=== PATIENT | male | born 1960 | race Caucasian/White ===

== ENCOUNTER 2024-11-08 14:15 | Observation (INO) | payer MEDICARE, OTHER, SELFPAY ==
[2024-11-08] VITALS (8 sets, daily range): BP systolic 161–210; BP diastolic 76–98; PULSE 68–79; RESP 16–23; TEMP 36–36.6; O2SAT 94–98; BMI 37.3; BMI 37.5
--- NOTE | 2024-11-08 14:25 | DI.RAD.S_ITS ---
PROCEDURE: XR CHEST 1V INDICATIONS: chest pain TECHNIQUE: One view of the chest was acquired. COMPARISON: [facility], CR, XR ABDOMEN 1 VIEW, 04/25/2023, 13:53. FINDINGS: Surgical changes and devices: None. Lungs and pleura: Lungs are clear except for focal alveolar radiodensity at the lateral left base adjacent to the diaphragm. No pleural effusions or pneumothorax. Mediastinum: Mediastinal contours appear normal. Heart size is normal. Bones and chest wall: No suspicious bony lesions. Overlying soft tissues appear unremarkable. IMPRESSION: No comparison chest plain film. Alveolar infiltration lateral left lower lobe abutting the diaphragm laterally. This could represent mild pneumonia versus prior scarring or atelectasis. No pleural effusion is associated. Dictated by: Luke Malagon M.D. on 11/08/2024 at 15:02 Approved by: Luke Malagon M.D. on 11/08/2024 at 15:06
--- NOTE | 2024-11-08 14:25 | EKG_ITS ---
[facility] [address] [place] [address] Test Date: 2024-11-08 Pat Name: David Duran Department: [facility] Room: Gender: Male Corporate Treasurer: THELMA : 1960 Requested By: Order Number: [id number] Reading MD: Bob Rico Measurements Intervals [place] Rate: 72 P: 62 FL: 152 QRS: -38 QRSD: 90 T: 48 QT: 386 QTc: 422 Interpretive Statements Normal sinus rhythm Possible Left atrial enlargement Left axis deviation Inferior infarct , age undetermined Electronically Signed On 11-14-2024 9:05:35 PST by Bob Rico
[2024-11-08 15:32] LABS: Add Manual Diff / Slide Review NO; Basophils Absolute Auto 100 /uL (0-100); Basophils Percent Auto 0.7 % (0-2); Eosinophils Absolute Auto 200 /uL (0-450); Eosinophils Percent Auto 2.3 % (2-4); Hematocrit 45.9 % (41-53); Hemoglobin 15.5 g/dL (13.5-17.5); Lymphocytes Absolute Auto 4200 /uL (1100-4500); Lymphocytes Percent Auto 43.2 % (25-40); Mean Corpuscular HGB Conc 33.8 % (30-36); Mean Corpuscular Hemoglobin 28.9 PG (26-34); Mean Corpuscular Volume 85.5 fL (80-100); Monocytes Absolute Auto 700 /uL (0-900); Monocytes Percent Auto 7.5 % (3-14); Neutrophils Absolute Auto 4500 /uL (1500-7000); Neutrophils Percent Auto 46.3 % (50-75); Platelet Count 218 X10^3/uL (150-400); Red Blood Cell Count 5.37 X10^6/uL (4.5-5.9); Red Cell Distribution Width 14.4 % (11.6-14.8); White Blood Cell Count 9.7 X10^3/uL (4.5-11.0)
[2024-11-08 15:33] LABS: Prothrombin Time 11.6 SECONDS (9.4-12.5)
[2024-11-08 15:36] LABS: PTT Partial Thromboplastin Tim 32 SECONDS (25.1-36.5)
[2024-11-08 15:39] LABS: Alanine Aminotransferase 98 IU/L (<50); Albumin 4.1 g/dL (3.5-5.0); Albumin Globulin Ratio 1.5 (1.0-2.8); Alkaline Phosphatase 89 U/L (38-126); Aspartate Aminotransferase 47 IU/L (17-59); BUN Creatinine Ratio 18.7 (6-22); Bilirubin Total 0.7 mg/dL (0.2-1.3); Blood Urea Nitrogen 14 mg/dL (9-20); Calcium 9.2 mg/dL (8.4-10.2); Carbon Dioxide 25 mmol/L (22-32); Chloride 106 mmol/L (98-107); Creatine Kinase 171 U/L (55-170); Estimated Glomerular Filt Rate > 60 mL/min (>60); Globulin 2.8 g/dL (1.7-4.1); Glucose 111 mg/dL (80-110); HEMOLYSIS 17 (0-50); Lipase 93 U/L (23-300); Magnesium 1.7 mg/dL (1.6-2.3); Potassium 3.6 mmol/L (3.4-5.1); Sodium 135 mmol/L (137-145); Total Protein 6.9 g/dL (6.3-8.2)
[2024-11-08 15:47] LABS: Bacteria Urine Occasional (0-1); Culture Indicated Urine Cult Not Indicated; RBC Urine 1-5/HPF (0-5/HPF); Squamous Epithelial Cell Urine 0-1 /HPF (0-5/HPF); Urine Volume 10mL (spun); WBC Urine 0-1/HPF (0-5/HPF)
[2024-11-08 15:50] LABS: NT-proBNP (BNP-Adult 18+) 40 pg/mL (<125); Troponin I < 0.012 ng/mL (0.01-0.034)
--- NOTE | 2024-11-08 15:56 | ED_ITS ---
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 He notes that he has had occasional palpitations for much of his life over the past number of months it is become increasingly more impressive both in terms of intensity, frequency and symptoms. He has had a number of near syncopal episodes. He has a sense that is coming on and it will resolve. He comes in today for further evaluation. He did have a sleep study at home about a week ago and received a phone call from his physician 2 days ago and was told that his sleep apnea was controlled but he had ?some heart issues?. No recent fever, cough, chills, nausea, vomiting. No prior coronary events of which he is where he may have had 1 or 2 TIAs. Related Data Home Medications Medication Instructions Recorded Confirmed OMEGA-3 FATTY ACIDS (FISH OIL) 500 mg PO QDAY ##0 07/13/16 lisinopril 20 mg tablet (Prinivil) 20 mg PO QDAY ##0 07/13/16 venlafaxine 75 mg tablet 75 mg PO QDAY ##0 07/13/16 chlorthalidone 25 mg tablet 25 mg PO DAILY 11/08/24 dulaglutide 0.75 mg/0.5 mL mg SUBCUT 11/08/24 subcutaneous pen injector (Trulicity) fluoxetine 20 mg capsule 60 mg PO QAM 11/08/24 losartan 100 mg tablet 100 mg PO DAILY 11/08/24 metformin 1,000 mg tablet 1,000 mg PO BID 11/08/24 Allergies Allergy/AdvReac Type Severity Reaction Status Date / Time No Known Drug Allergies Allergy Verified 11/08/24 14:24 Review of Systems Review of Systems Narrative: Pertinent positive and negative findings as per HPI Patient History Medical History (Updated 11/08/24 @ 16:18 by Francia Thomas MD) Ventricular tachycardia Sleep apnea Hyperlipidemia Hypertension Type 2 diabetes mellitus Surgical History History of carpal tunnel repair Family History Grandfather Cancer Grandmother Heart disease Social History Smoking Status: Former smoker Smoking Status: Former smoker tobacco type: cigarettes and cigars Exam Initial Vital Signs Initial Vital Signs: Vital Signs Temperature 97.9 F 11/08/24 14:19 Pulse Rate 70 11/08/24 14:19 Respiratory Rate 16 11/08/24 14:19 Blood Pressure 192/93 H 11/08/24 14:19 Pulse Oximetry 96 11/08/24 14:19 Oxygen Delivery Method Room Air 11/08/24 14:19 General: Healthy appearing, in no acute distress. Able to give a complete and coherent history. Well-nourished well-developed HEENT: Moist mucous membranes, normal sclera with reactive pupils, Neck: No JVD, supple Respiratory: Lungs are clear to auscultation, no wheezing no rales no rhonchi. Full and symmetrical air movement Cardiac: Regular rate and rhythm no murmurs no bruits Abdomen: Soft, nontender, good bowel tones, no flank pain Skin: Warm and dry, no rashes Neurologic: Grossly neurologically intact with no obvious asymmetries or abnormalities Extremities: No trauma, well perfused Psych: Cooperative, appropriate insight and affect Course Orders Ordered: ED Orders 11/08/24 14:25 XR chest 1V Stat EKG-12 Lead Stat 11/08/24 15:12 Complete Blood Count AUTO DIFF Stat Comprehensive Metabolic Panel Stat Lipase Stat Magnesium Stat NT-proBNP (BNP-Adult 18+) Stat PTT Partial Thromboplastin Santosh Stat Prothrombin Time INR Stat Troponin & CK Cardiac Panel Stat 11/08/24 15:23 Urine Microscopic Stat Discontinued Medications Aspirin (Aspirin 81 Mg Chew Tab) 324 mg PO NOW ONE Stop: 11/08/24 14:26 Vital Signs Vital signs: Vital Signs - 8 hr 11/08/24 14:19 Temperature 97.9 F Pulse Rate 70 Respiratory Rate 16 Blood Pressure 192/93 H Pulse Oximetry 96 Oxygen Delivery Method Room Air MDM - Arrhythmia/Palpitations Lab Data 11/08/24 15:12 11/08/24 15:12 Labs: Lab Results 12/27/24 12/27/24 Range/Units 15:12 15:23 WBC 9.7 (4.5-11.0) X10^3/uL RBC 5.37 (4.5-5.9) X10^6/uL Hgb 15.5 (13.5-17.5) g/dL Hct 45.9 (41-53) % MCV 85.5 (80-100) fL MCH 28.9 (26-34) PG MCHC 33.8 (30-36) % RDW 14.4 (11.6-14.8) % Plt Count 218 (150-400) X10^3/uL Neut % (Auto) 46.3 L (50-75) % Lymph % (Auto) 43.2 H (25-40) % [place] % (Auto) 7.5 (3-14) % Eos % (Auto) 2.3 (2-4) % Baso % (Auto) 0.7 (0-2) % Neut # (Auto) 4500 (4494-7577) /uL Lymph # (Auto) 4200 (7630-3937) /uL [place] # (Auto) 700 (0-900) /uL Eos # (Auto) 200 (0-450) /uL Baso # (Auto) 100 (0-100) /uL PT 11.6 (9.4-12.5) SECONDS INR 1.0 (0.9-1.3) APTT 32 (25.1-36.5) SECONDS Sodium 135 L (137-145) mmol/L Potassium 3.6 (3.4-5.1) mmol/L Chloride 106 (98-107) mmol/L Carbon Dioxide 25 (22-32) mmol/L BUN 14 (9-20) mg/dL Creatinine 0.75 (0.66-1.25) mg/dL Estimated GFR > 60 (>60) mL/min BUN/Creatinine Ratio 18.7 (6-22) Glucose 111 H (80-110) mg/dL Calcium 9.2 (8.4-10.2) mg/dL Magnesium 1.7 (1.6-2.3) mg/dL Total Bilirubin 0.7 (0.2-1.3) mg/dL AST 47 (17-59) IU/L ALT 98 H (<50) IU/L Alkaline Phosphatase 89 (38-126) U/L Total Creatine Kinase 171 H (55-170) U/L Troponin I < 0.012 (0.01-0.034) ng/mL NT-Pro-B Natriuret Pep 40 (<125) pg/mL Total Protein 6.9 (6.3-8.2) g/dL Albumin 4.1 (3.5-5.0) g/dL Globulin 2.8 (1.7-4.1) g/dL Albumin/Globulin Ratio 1.5 (1.0-2.8) Lipase 93 (23-300) U/L Urine RBC 1-5/hpf (0-5/HPF) Urine WBC 0-1/hpf (0-5/HPF) Ur Squamous Epith Cells 0-1 /hpf (0-5/HPF) Urine Bacteria Occasional (0-1) (None) Ur Culture Indicated? Cult not indicated Vol Urine Centrifuged 10ml (spun) Urine Dip Bedside Urine Glucose Negative Bedside Urine Bilirubin - Negative Bedside Urine Ketone - Negative Urine Specific [place] 1.005 Bedside Urine Occult Blood ++ Bedside Urine pH 7.0 Bedside Urine Protein - Negative Bedside Urine Urobilinogen - Negative Bedside Urine Nitrite - Negative Bedside Urine Leukocytes - Negative Esterase MDM Narrative Medical decision making narrative: CC: Palpitations associated with near-syncope increasing in frequency and intensity Complicating co-morbidities: Hypertension, sleep apnea, diabetes, hyperlipidemia Data collected from: patient Medical records reviewed: No records are available for review at this time Differential considered: Simple arrhythmia, pathologic arrhythmia, TIA Exam documented above, pertinent findings include: Benign exam. On telemetry while we are talking he is having occasional PVCs Lab Test results independently reviewed as above. Pertinent findings: CBC is reassuring Chemistries show no significant abnormalities with normal renal function. Calcium and magnesium levels are appropriate AST is 47 ALT minimally elevated at 98 normal alkaline phosphatase. Troponin is undetectable BNP is low Independently reviewed EKG: Sinus rhythm at a rate of 72 no acute ischemic changes Patient had an episode on telemetry with 10 beat run of ventricular tachycardia with spontaneous return to sinus rhythm. He states that this is the palpitation that he has been having and he did notice this run with associated slight dizziness Imaging studies independently reviewed: Chest x-ray does not show significant cardiomegaly, no obvious infiltrates Consultations: Discussed case with Dr. Guillaume, cardiology. Recommendation was to replace potassium to get potassium levels above 4 currently at 3.6. Replace magnesium to get levels above 2 currently at 1.6. Begin metoprolol 25 mg immediate release q.6 hours and increased to 50 q.6 hours if heart rate and blood pressure tolerate this. Recommended ischemic evaluation and further evaluation of LV function. If he is having worsening episodes of V-tach. Discontinuing the chlorthalidone is also recommended Treatment: Oral potassium, IV magnesium, oral metoprolol Discussion: 63-year-old gentleman with increasing palpitations over the last number of months both in intensity and frequency. He had a 10 beat run of V- tach caught on our telemetry monitors which he states is policy services representative of his palpitations. Chemistries are unremarkable, no electrolyte abnormalities, troponins are not elevated, EKG does not suggest acute ischemic abnormalities. Care is reviewed with the hospitalist and patient will be admitted for further evaluation. Discharge Plan Departure Patient Disposition: Admitted as Observation Clinical Impression: Ventricular tachycardia, History of palpitations, Near syncope Prescriptions: No Action lisinopril [Prinivil] 20 MG tablet 20 mg PO QDAY Qty: 0 OMEGA-3 FATTY ACIDS (FISH OIL) 500 mg PO QDAY Qty: 0 venlafaxine 75 MG tablet 75 mg PO QDAY Qty: 0 chlorthalidone 25 mg tablet 25 mg PO DAILY fluoxetine 20 mg capsule 60 mg PO QAM losartan 100 mg tablet 100 mg PO DAILY metformin 1,000 mg tablet 1,000 mg PO BID Trulicity 0.75 mg/0.5 mL pen injector SUBCUT Patient Comments: [NO ORIGINAL SIG] Referrals: Miscellaneous,MD Joleen [Primary Care Provider] - Admit Date/Time: 11/08/24 16:40 Admit Provider: Zander Figueroa V
--- NOTE | 2024-11-08 16:38 | P.HP_ITS ---
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 He has had several near syncopal episodes in the past. He states that after a home sleep study week ago he was told that he had ?some heart issues?, though his sleep apnea is well controlled. No recent illnesses, chest pain, shortness for breath, lateralizing weakness, paresthesias, though states that he may have had TIAs in the past. In the emergency department he had a wide complex 10 beat run of tachycardia that was initially described as ventricular tachycardia, though on review shows [id number] variability consistent with possible atrial fibrillation with aberrancy. [facility] Medical History Hyperlipidemia Hypertension Sleep apnea Type 2 diabetes mellitus Ventricular tachycardia Surgical History History of carpal tunnel repair Family History Grandfather Cancer Grandmother Heart disease Social History Smoking Status: Former smoker Meds Home Medications and Allergies Home Medications Medication Instructions Recorded Confirmed Type OMEGA-3 FATTY ACIDS (FISH OIL) 500 mg PO QDAY ##0 07/13/16 History lisinopril 20 mg tablet (Prinivil) 20 mg PO QDAY ##0 07/13/16 History venlafaxine 75 mg tablet 75 mg PO QDAY ##0 07/13/16 History chlorthalidone 25 mg tablet 25 mg PO DAILY 11/08/24 History dulaglutide 0.75 mg/0.5 mL mg SUBCUT 11/08/24 History subcutaneous pen injector (Trulicity) fluoxetine 20 mg capsule 60 mg PO QAM 11/08/24 History losartan 100 mg tablet 100 mg PO DAILY 11/08/24 History metformin 1,000 mg tablet 1,000 mg PO BID 11/08/24 History Allergies Allergy/AdvReac Type Severity Reaction Status Date / Time No Known Drug Allergies Allergy Verified 11/08/24 14:24 Review of Systems Review of Systems ROS: Yes All systems reviewed with the patient and are negative except as otherwise documented Exam Vital Signs (past 8 hours): - 11/08/24 14:19 Temperature 97.9 F Pulse Rate 70 Respiratory Rate 16 Blood Pressure 192/93 H Pulse Oximetry 96 Oxygen Delivery Method Room Air Oxygen Delivery Method Room Air Narrative Exam Narrative: GENERAL: This is a well-nourished, well-developed patient, in no apparent distress. HEAD: Atraumatic. Normocephalic. No temporal or scalp tenderness. EYES: Pupils equal round and reactive. Extraocular motions intact. No scleral icterus. No injection or drainage. ENT: Mucous membranes pink and moist. NECK: Trachea midline. No JVD, bruits or lymphadenopathy. Supple, nontender, no meningeal signs. CARDIOVASCULAR: Regular rate and rhythm with occasional ectopy, without murmurs, gallops, or rubs. RESPIRATORY: Clear to auscultation. GASTROINTESTINAL: Abdomen soft, non-tender, nondistended. EXTREMITIES: No clubbing, cyanosis, or edema. BACK: Nontender without deformity or crepitance. No flank tenderness. NEUROLOGIC: Alert, oriented, speech fluent, full upper and lower motor strength, no focal deficits evident. DERMATOLOGIC: No rashes or skin lesions. Objective ECG Impression: Normal sinus rhythm at 72bpm Possible Left atrial enlargement Left axis deviation Inferior infarct , age undetermined Imaging Chest x-ray: Radiologist's impression: No comparison chest plain film. Alveolar infiltration lateral left lower lobe abutting the diaphragm laterally. This could represent mild pneumonia versus prior scarring or atelectasis. No pleural effusion is associated. Labs 11/08/24 15:12 11/08/24 15:12 Labs: Laboratory Results - last 24 hr 11/08/24 11/08/24 15:12 15:23 WBC 9.7 RBC 5.37 Hgb 15.5 Hct 45.9 MCV 85.5 MCH 28.9 MCHC 33.8 RDW 14.4 Plt Count 218 Neut % (Auto) 46.3 L Lymph % (Auto) 43.2 H [place] % (Auto) 7.5 Eos % (Auto) 2.3 Baso % (Auto) 0.7 Neut # (Auto) 4500 Lymph # (Auto) 4200 [place] # (Auto) 700 Eos # (Auto) 200 Baso # (Auto) 100 PT 11.6 INR 1.0 APTT 32 Sodium 135 L Potassium 3.6 Chloride 106 Carbon Dioxide 25 BUN 14 Creatinine 0.75 Estimated GFR > 60 BUN/Creatinine Ratio 18.7 Glucose 111 H Calcium 9.2 Magnesium 1.7 Total Bilirubin 0.7 AST 47 ALT 98 H Alkaline Phosphatase 89 Total Creatine Kinase 171 H Troponin I < 0.012 NT-Pro-B Natriuret Pep 40 Total Protein 6.9 Albumin 4.1 Globulin 2.8 Albumin/Globulin Ratio 1.5 Lipase 93 Urine RBC 1-5/hpf Urine WBC 0-1/hpf Ur Squamous Epith Cells 0-1 /hpf Urine Bacteria Occasional (0-1) Ur Culture Indicated? Cult not indicated Vol Urine Centrifuged 10ml (spun) Assessment & Plan Assessment & Plan narrative: 1. Arrhythmia, possible atrial fibrillation with aberrancy. Monitor on telemetry overnight. Obtain echocardiogram. 2. Hypokalemia. Replete and monitor. 3. Hypomagnesemia. Replete and monitor. 4. Diabetes mellitus, type 2. Continue routine medication. 5. Hypertension. Continue routine medication. 6. Hyperlipidemia. 7. Sleep apnea. Continue routine CPAP. 8. DVT prophylaxis: Low risk. 9. Code status: Full code. Plan: -telemetry/observation -replete potassium and magnesium -echocardiogram Admit to observation. Possible discharge home tomorrow if stable and doing well. Quality MIPS - Admit I confirm the patient?s Advance Care Plan is present, Code status is documented, Surrogate decision maker is in patient?s record [If Yes, STOP here]: Yes [facility] - Meds 'Current medications' to include all prescriptions, [id number] products, herbals, cannabis/cannabidiol products, and vitamin/mineral/dietary (nutritional) supplements. I have utilized all available resources to obtain, update, or review the patient?s current medications. [If Yes, STOP here]: Yes [facility] Charge Codes Initial inpatient/observation care: [id number]
[2024-11-08] MEDS: METOPROLOL IR 25 MG TABLET PO ×2 (16:51→18:25)
[2024-11-08] MEDS: ASPIRIN 81 MG CHEW TAB 324 MG PO (16:51)
[2024-11-08] MEDS: MAGNESIUM SULFATE 2 GM/50 ML PIGGYBACK IV (16:51)
[2024-11-08] MEDS: POTASSIUM CHLORIDE 20 MEQ TAB 40 MEQ PO (16:51)
--- NOTE | 2024-11-08 18:06 | DI.ECHO.S_ITS ---
[facility] : : [address] : : [place] : : [id number] : : Phone: [phone] Echocardiogram Report + + :Name: LIA PEREZ Study Date: 11/09/2024 Height: 72 in : :Hospital ReadingLocation: Weight: 275 lb : : Gender: Male BSA: 2.4 m2 : :: 1960 Age: 63 yrs BP: 139/92 mmHg: :Reason For Study: ATRIAL FIBRILLATION : :Ordering Physician: IVAN, : :YUSUF Performed By: Meliza Baugh : :Referring: YUSUF LOVE : + + Interpretation Summary The left ventricle is normal in size. The left ventricular ejection fraction is normal. The ejection fraction is estimated to be 60-65%. No significant diastolic dysfunction. The right ventricle is normal in size and function. No significant valvular pathology seen. Procedure: A two-dimensional transthoracic echocardiogram with color flow and Doppler was performed. The study quality was technically adequate. There is no prior echocardiogram noted for this patient. The patient was in sinus rhythm with heart rates between 66-70 bpm during the exam. Left Ventricle: The left ventricle is normal in size. Proximal septal thickening is noted. There is no echo evidence for significant left ventricular outflow tract obstruction. There is no thrombus. The ejection fraction is estimated to be 60-65%. The left ventricular ejection fraction is normal. There are no focal wall motion abnormalities. No significant diastolic dysfunction. Right Ventricle: The right ventricle is normal in size and function. Atria: The left atrial size is normal. Right atrial size is normal. There is no Doppler evidence for an interatrial shunt. Mitral Valve: The mitral valve leaflets appear borderline thickened, but open well. The mitral valve leaflets appear to open well. There is no mitral valve stenosis. There is mild mitral regurgitation. Aortic Valve: The aortic valve is trileaflet. The aortic valve opens well. There is no aortic valve stenosis. No aortic regurgitation is present. Tricuspid Valve: The tricuspid valve leaflets are thin and pliable. Pulmonary artery pressures cannot be estimated because of the lack of a measurable TR jet velocity. There is trace tricuspid regurgitation. Pulmonic Valve: The pulmonic valve is not well seen, but is grossly normal. There is no pulmonic valvular regurgitation. Great Vessels: The aortic root is normal size. The ascending aorta could not be visualized. The inferior vena cava was not well visualized. Pericardium/ Pleura There is no pericardial effusion. There is no pleural effusion. MMode/2D Measurements & Calculations LVIDd: 5.9 cm LVOT diam: 2.3 cm LVIDs: 3.9 cm Ao root diam: 3.4 cm FS: 33.8 % Ao Arch Diam (Prox Trans): 3.5 cm EPSS: 0.82 cm IVSd: 0.88 cm LVPWd: 1.2 cm LV long. diameter/BSA (cm/m^2): 2.4 LV sys. diameter/BSA (cm/m^2): 1.6 LA A2 area: 16.8 cm2 RA long axis: 4.7 cm LA A4 area: 13.5 cm2 RA area: 13.2 cm2 LA length (vol): 4.3 cm RA vol: 31.3 ml LA vol: 44.8 ml RA : 12.8 ml/m2 LA vol index: 18.4 ml/m2 RVD1 (basal): 3.7 cm TAPSE: 2.1 cm Doppler Measurements & Calculations Ao V2 max: 115.9 cm/sec LVOT Max Bib: 92.0 cm/sec Ao V2 mean: 85.1 cm/sec LV V1 max P.4 mmHg Ao max P.4 mmHg LV V1 VTI: 21.6 cm Ao mean P.2 mmHg CHIVO(I,D): 3.4 cm2 Ao V2 VTI: 25.3 cm CHIVO(V,D): 3.2 cm2 sev ratio: 0.86 CHIVO indexed to BSA (cm^2/m^2): 1.4 MV E max bib: 80.8 cm/sec PA V2 max: 92.4 cm/sec MV A max bib: 70.2 cm/sec PA V2 mean: 67.5 cm/sec MV E/A: 1.1 PA mean P.0 mmHg Med Peak E' Bib: 8.9 cm/sec PA pr(Accel): 20.8 mmHg E/E' med: 9.1 Lat Peak E' Bib: 9.6 cm/sec E/E' lat: 8.4 E/e' average: 8.8 MV dec time: 0.21 sec MVA(VTI): 3.2 cm2 MV V2 mean: 58.7 cm/sec SV(LVOT): 86.8 ml MV mean P.5 mmHg MV V2 VTI: 26.9 cm Reading Physician:12:24 PM
[2024-11-08] MEDS: METFORMIN HCL 500 MG TABLET 1000 MG PO (20:58)
[2024-11-09] VITALS: BP 147/76; PULSE 63; RESP 18; TEMP 37; O2SAT 97
[2024-11-09] MEDS: METOPROLOL IR 25 MG TABLET PO ×2 (00:08→06:03)
[2024-11-09] MEDS: SODIUM CHLORIDE 0.9% FLUSH 10 ML IV ×2 (00:49→09:27)
[2024-11-09 04:00] VITALS: BP 141/71; PULSE 67; RESP 16; TEMP 37.1; O2SAT 95
[2024-11-09 05:19] LABS: Add Manual Diff / Slide Review NO; Basophils Absolute Auto 100 /uL (0-100); Basophils Percent Auto 0.6 % (0-2); Eosinophils Absolute Auto 300 /uL (0-450); Eosinophils Percent Auto 2.6 % (2-4); Hemoglobin 15.5 g/dL (13.5-17.5); Lymphocytes Absolute Auto 6100 /uL (1100-4500); Lymphocytes Percent Auto 47.5 % (25-40); Mean Corpuscular HGB Conc 32.9 % (30-36); Mean Corpuscular Hemoglobin 28.2 PG (26-34); Mean Corpuscular Volume 85.5 fL (80-100); Monocytes Absolute Auto 1200 /uL (0-900); Monocytes Percent Auto 9.4 % (3-14); Neutrophils Absolute Auto 5200 /uL (1500-7000); Neutrophils Percent Auto 39.9 % (50-75); Platelet Count 225 X10^3/uL (150-400); Red Cell Distribution Width 14.3 % (11.6-14.8); White Blood Cell Count 12.9 X10^3/uL (4.5-11.0)
[2024-11-09 05:29] LABS: BUN Creatinine Ratio 24.3 (6-22); Blood Urea Nitrogen 17 mg/dL (9-20); Calcium 9.1 mg/dL (8.4-10.2); Carbon Dioxide 23 mmol/L (22-32); Chloride 106 mmol/L (98-107); Estimated Glomerular Filt Rate > 60 mL/min (>60); Glucose 88 mg/dL (80-110); HEMOLYSIS 17 (0-50); Potassium 3.9 mmol/L (3.4-5.1); Sodium 135 mmol/L (137-145)
[2024-11-09 08:00] VITALS: BP 139/92; PULSE 61; RESP 12; TEMP 36.6; O2SAT 93
[2024-11-09] MEDS: FLUoxetine 20 MG CAPSULE 60 MG PO (09:26)
[2024-11-09] MEDS: METFORMIN HCL 500 MG TABLET 1000 MG PO (09:26)
--- NOTE | 2024-11-09 11:20 | P.DS_ITS ---
History of Present Illness History of Present Illness Date Patient Seen: 11/09/24 Time Patient Seen: 08:35 Date of Onset of Symptoms: 11/08/24 Chief complaint: irregular heart beat Narrative: 63-year-old man under the primary care of the 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 He has had several near syncopal episodes in the past. He states that after a home sleep study week ago he was told that he had ?some heart issues?, though his sleep apnea is well controlled. No recent illnesses, chest pain, shortness for breath, lateralizing weakness, paresthesias, though states that he may have had TIAs in the past. In the emergency department he had a wide complex 10 beat run of tachycardia that was initially described as ventricular tachycardia, though on review shows [id number] variability consistent with possible atrial fibrillation with aberrancy. Discharge Providers Provider Date of admission: 11/08/24 16:40 Discharge Date: 11/09/24 Primary care physician: Doctor Brady MD Discharge provider: Zander Figueroa MD Summary Hospital Course Discharge Diagnosis: 1. Wide complex irregularly irregular tachycardia, consistent with atrial fibrillation with aberrancy. 2. Frequent premature ventricular contractions. 3. Hypokalemia 4. Hypomagnesemia. 5. Diabetes mellitus, type 2. 6. Hypertension. 7. Hyperlipidemia. 8. Sleep apnea. Hospital Course: The patient was admitted and monitored overnight on telemetry. He would demonstrated sinus rhythm and sinus bradycardia with occasional PVCs. He had no further wide complex rhythms or evidence of atrial fibrillation. Electrolytes were repleted. He is feeling well without symptoms. He is recommended to obtain outpatient heart monitoring, e.g., ZIO patch, testing to further evaluate for possible atrial fibrillation. Echocardiogram was obtained and pending at the time of discharge. No other issues arose. The patient acknowledged understanding, agreement and appreciation of this plan of care, and agreed to call back with any questions or concerns. Status at Discharge Cognitive/behavioral status at discharge: oriented Functional status at discharge: independent ambulation Overall status at discharge: patient is back to baseline Time Spent with Patient Time spent: Less than 30 minutes Exam Vital Signs (past 8 hours): - 11/09/24 04:00 11/09/24 08:00 Temperature 98.8 F 97.8 F Pulse Rate 67 61 Respiratory Rate 16 12 Blood Pressure 141/71 H 139/92 H Pulse Oximetry 95 93 Oxygen Flow Rate 0 Oxygen Delivery Method Room Air Oxygen Flow Rate 0 Narrative Exam Narrative: GENERAL: This is a well-nourished, well-developed patient, in no apparent distress. EYES: Pupils equal round and reactive. Extraocular motions intact. No scleral icterus. No injection or drainage. ENT: Mucous membranes pink and moist. NECK: Trachea midline. No JVD, bruits or lymphadenopathy. Supple, nontender, no meningeal signs. CARDIOVASCULAR: Regular rate and rhythm with occasional ectopy, without murmurs, gallops, or rubs. RESPIRATORY: Clear to auscultation. GASTROINTESTINAL: Abdomen soft, non-tender, nondistended. EXTREMITIES: No clubbing, cyanosis, or edema. NEUROLOGIC: Alert, oriented, speech fluent, full upper and lower motor strength, no focal deficits evident. DERMATOLOGIC: No rashes or skin lesions. Objective Labs 11/09/24 05:08 11/09/24 05:08 Labs: Laboratory Results - last 24 hr 11/08/24 11/08/24 11/09/24 15:12 15:23 05:08 WBC 9.7 12.9 H RBC 5.37 5.50 Hgb 15.5 15.5 Hct 45.9 47.0 MCV 85.5 85.5 MCH 28.9 28.2 MCHC 33.8 32.9 RDW 14.4 14.3 Plt Count 218 225 Neut % (Auto) 46.3 L 39.9 L Lymph % (Auto) 43.2 H 47.5 H [place] % (Auto) 7.5 9.4 Eos % (Auto) 2.3 2.6 Baso % (Auto) 0.7 0.6 Neut # (Auto) 4500 5200 Lymph # (Auto) 4200 6100 H [place] # (Auto) 700 1200 H Eos # (Auto) 200 300 Baso # (Auto) 100 100 PT 11.6 INR 1.0 APTT 32 Sodium 135 L 135 L Potassium 3.6 3.9 Chloride 106 106 Carbon Dioxide 25 23 BUN 14 17 Creatinine 0.75 0.70 Estimated GFR > 60 > 60 BUN/Creatinine Ratio 18.7 24.3 H Glucose 111 H 88 Calcium 9.2 9.1 Magnesium 1.7 Total Bilirubin 0.7 AST 47 ALT 98 H Alkaline Phosphatase 89 Total Creatine Kinase 171 H Troponin I < 0.012 NT-Pro-B Natriuret Pep 40 Total Protein 6.9 Albumin 4.1 Globulin 2.8 Albumin/Globulin Ratio 1.5 Lipase 93 Urine RBC 1-5/hpf Urine WBC 0-1/hpf Ur Squamous Epith Cells 0-1 /hpf Urine Bacteria Occasional (0-1) Ur Culture Indicated? Cult not indicated Vol Urine Centrifuged 10ml (spun) [facility] Medical History Hyperlipidemia Hypertension Sleep apnea Type 2 diabetes mellitus Ventricular tachycardia Surgical History History of carpal tunnel repair Family History Grandfather Cancer Grandmother Heart disease Social History household members: spouse Smoking Status: Former smoker Discharge Plan Discharge Plan Patient Disposition: Home Provider Discharge Comment: Followup with PCP 1 week Discharge orders & Medications Prescriptions: New potassium chloride 10 mEq capsule, extended release 10 meq PO DAILY Qty: 30 0RF Continued lisinopril [Prinivil] 20 MG tablet 20 mg PO QDAY Qty: 0 OMEGA-3 FATTY ACIDS (FISH OIL) 500 mg PO QDAY Qty: 0 chlorthalidone 25 mg tablet 25 mg PO DAILY fluoxetine 20 mg capsule 60 mg PO QAM losartan 100 mg tablet 100 mg PO DAILY metformin 1,000 mg tablet 1,000 mg PO BID Trulicity 0.75 mg/0.5 mL pen injector 0.75 mg SUBCUT WEEKLY Patient Comments: [NO ORIGINAL SIG] zinc 100 mg Tablet 100 mg PO DAILY Follow up/Referrals: Doctor Abreu MD [Primary Care Provider] - Visit Report/Discharge Packet Stand Alone Forms: Congestive Heart Failure, Patient Portal/API, Stroke Signs & Symptoms Discharge Data Primary Care Provider: Doctor Brady Attending Provider: Zander Figueroa V Admubaldo Date/Time: 11/08/24 16:40 Quality MIPS - Admit I confirm the patient?s Advance Care Plan is present, Code status is documented, Surrogate decision maker is in patient?s record [If Yes, STOP here]: Yes MIPS - Meds 'Current medications' to include all prescriptions, [id number] products, herbals, cannabis/cannabidiol products, and vitamin/mineral/dietary (nutritional) supplements. I have utilized all available resources to obtain, update, or review the patient?s current medications. [If Yes, STOP here]: Yes MIPS - DC The patient has a history of heart transplant or Left Ventricular Assist Device (LVAD). If yes, STOP here.: No The patient has current or prior documentation of left ventricular ejection fraction (LVEF) less than or equal to 40%, or moderate or severely depressed left ventricular systolic function.: No A. The patient was prescribed or already taking an Angiotensin-Converting Enzyme (ANIRUDH) Inhibitor, or Angiotensin Receptor Carrie (ARB).: Yes B. The patient was prescribed or already taking a beta-carrie. [If Yes to Both A & B, STOP here]: No Patient not prescribed/taking ANIRUDH or ARB, no reason given.: No Patient not prescribed/taking beta-carrie, no reason given.: No PROFEE Charge Codes Discharge inpatient/observation: [id number]
--- NOTE | 2024-11-09 12:18 | CM.DANOTE ---
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 PCP [facility] P[employer] Medicare and [employer] reviewed EMR. Pt lives in [place] with spouse, Anne Marie. Per provider in morning rounds, anticipate dc today with OP PCP f/u recommended. [employer] met with pt and spouse in room. Pt pleasant and chatty and wonderful. pt has cane he uses to mobilize. indep at home. denies any CM needs at this time. P: home with spouse support today. OP f/u recommended. no CM needs at this time. CM team will continue to follow as needed PRICILA Campoverde Discharge Planning/Care Management CM Discharge Assessment Start: 11/09/24 09:23 Freq: Status: Active Protocol: Document 11/09/24 12:16 SL (Rec: 11/09/24 12:17 [id number]) Discharge Planning Assessment Assigned [employer] PRICILA Farley DPOA/Assigned Designee Name hiren Angel Contact Information [phone] Advance Directives? No History Provided By Patient Prior Living Arrangements House Household Members spouse Type of transporation used prior to Drives own vehicle admit Independent with ADL's Yes Is patient alert and oriented? Yes DME Already Rented / Owned Cane Barriers to Discharge No Discharge Plan Home Transportation Arrangement spouse in POV Referrals Initiated None needed Review Status In Process Please Provide Date Initial DC 11/09/24 Assessment Was Performed Next Review Type Continued Stay Review
== END 2024-11-09 12:24 | disposition home or self-care (01) ==
LOC: ED 16:18 → AC 16:40
PROVIDERS: Admitting Provider Internal Medicine; Emergency Provider Emergency Medicine; Referring Provider Emergency Medicine; Visit Provider Internal Medicine
DX: I49.3 Ventricular premature depolarization (principal); I10 Essential (primary) hypertension; G47.30 Sleep apnea, unspecified; E11.9 Type 2 diabetes mellitus without complications; E87.6 Hypokalemia; E83.42 Hypomagnesemia; Z79.84 Long term (current) use of oral hypoglycemic drugs
CPT/HCPCS: 36415; 71045; 80048; 80053; 81003; 81015; 82550; 82962; 83690; 83735; 83880; 84484; 85025; 85610; 85730; 93005; 93306; 96365; 99284; 99285; G0378; J3475

== ENCOUNTER 2025-10-04 00:08 | Emergency (ER) | payer MEDICARE, OTHER, SELFPAY ==
[2024-11-08 18:26] VITALS: BMI 37.5
[2025-10-04 00:24] VITALS: BP 137/84; PULSE 92; RESP 16; TEMP 37.2; O2SAT 99; BMI 29.1
--- NOTE | 2025-10-04 01:15 | ED.MALEGU ---
HPI - Male Genitourinary General Chief complaint: Urogenital-Male Stated complaint: Pain in groin, gradual decrease mobility RT Leg Time Seen by Provider: 10/04/25 01:15 Source: patient Mode of arrival: Wheelchair History of Present Illness HPI Narrative: Patient is a 64-year-old male past medical history of diabetes, comes into the ED from home for evaluation of bilateral thigh/groin pain states it has been slowly getting worse over the past few days, states that 3 days ago he did lift something heavy, states that he felt a little ?strain but has been fine until earlier today when he had sudden worsening onset of pain to his bilateral groin, states that he is unable to stand bear weight secondary to this pain but denies any numbness weakness tingling to the lower extremities. Denies any other symptoms such as headache visual disturbance chest pain shortness breath fever chills nausea vomiting abdominal pain or any other GI/ symptoms time. Related Data Home Medications ?Medication ?Instructions ?Recorded ?Confirmed OMEGA-3 FATTY ACIDS (FISH OIL) 500 mg PO QDAY ##0 07/13/16 11/08/24 lisinopril 20 mg tablet (Prinivil) 20 mg PO QDAY ##0 07/13/16 11/08/24 chlorthalidone 25 mg tablet 25 mg PO DAILY 11/08/24 11/08/24 dulaglutide 0.75 mg/0.5 mL 0.75 mg SUBCUT WEEKLY 11/08/24 11/08/24 subcutaneous pen injector (Trulicity) fluoxetine 20 mg capsule 60 mg PO QAM 11/08/24 11/08/24 losartan 100 mg tablet 100 mg PO DAILY 11/08/24 11/08/24 metformin 1,000 mg tablet 1,000 mg PO BID 11/08/24 11/08/24 zinc 100 mg tablet 100 mg PO DAILY 11/08/24 11/08/24 Previous Rx's ?Medication ?Instructions ?Recorded potassium chloride 10 mEq 10 meq PO DAILY #30 caps 11/09/24 capsule,extended release diazepam 5 mg tablet (Valium) 5 mg PO BID PRN muscle spasm 3 10/04/25 days #9 tabs oxycodone-acetaminophen 5 mg-325 1 tab PO Q8H PRN pain 3 days #9 10/04/25 mg tablet (Percocet) tabs Allergies Allergy/AdvReac Type Severity Reaction Status Date / Time No Known Drug Allergies Allergy Verified 10/04/25 00:24 Review of Systems Review of Systems Narrative: General: Denies fever, chills, weight loss HEENT: Denies headache, eye drainage, eye irritation, head trauma, sore throat, voice change Cardiovascular: Denies any chest pain, palpitations, tachycardia Respiratory: Denies any shortness of breath, cough, wheeze, stridor GI/: Denies any abdominal pain, nausea, vomiting, diarrhea, bright red blood per rectum, melanotic stools, urinary frequency, urinary retention, dysuria, hematuria MSK: Bilateral lower groin/extremity pain Skin: Denies any rashes, lesions, discoloration Neuro: Denies any headache, lightheadedness, dizziness, fainting, weakness Psych: Denies SI/HI Patient History Medical History Hyperlipidemia Hypertension Sleep apnea Type 2 diabetes mellitus Ventricular tachycardia Surgical History History of carpal tunnel repair Family History Grandfather Cancer Grandmother Heart disease Social History household members: spouse Smoking Status: Current every day smoker Smoking Status: Current every day smoker tobacco type: cigarettes and cigars Exam Narrative Exam Narrative: General: Cooperative, well-developed, not in acute distress HEENT: Normocephalic, atraumatic, PERRLA, normal sclera, eyelids normal Neck: Active full range of motion, atraumatic Chest: Normal to inspection, negative crepitus, no overlying erythema ecchymosis Respiratory: Normal respiratory effort, not in acute respiratory distress, clear to auscultation bilaterally negative cough, wheeze, tachypnea, rhonchi, rales Cardiology: Regular rate rhythm negative gallop, murmur, rubs GI/: No tenderness to palpation, soft, non rigid, normal to inspection, exam: Patient without any palpable inguinal hernias, no tenderness to palpation of the testicles, grossly normal, no discharge from the meatus, I was able to reproduce of the pain on palpation of the inguinal ligament, there is no overlying crepitus there is no overlying erythema MSK: Full active range of motion in all 4 extremities, atraumatic, no tenderness to palpation of any bony prominences Skin: No rashes or lesions noted, patient is neurovascularly intact to bilateral upper and lower extremities otherwise, initially patient having difficulty standing secondary to pain but able to move extremities Neuro: Alert awake oriented x3, moves all 4 extremities spontaneously, cranial nerves intact, able to answer all questions appropriately follows commands appropriately Psych: Cooperative, negative suicidal or homicidal ideations Initial Vital Signs Initial Vital Signs: Vital Signs Temperature 98.9 F 10/04/25 00:24 Pulse Rate 92 H 10/04/25 00:24 Respiratory Rate 16 10/04/25 00:24 Blood Pressure 137/84 10/04/25 00:24 Pulse Oximetry 99 10/04/25 00:24 Oxygen Delivery Method Room Air 10/04/25 00:24 Course Orders Ordered: ED Orders 10/04/25 02:17 CBC Auto Diff [Complete Blood Count AUTO DIFF] Stat CMP [Comprehensive Metabolic Panel] Stat MAG [Magnesium] Stat 10/04/25 04:54 CT abdomen pelvis w con Stat Discontinued Medications Diazepam (Diazepam 10 Mg/2 Ml Syringe) 5 mg IV NOW ONE Stop: 10/04/25 04:18 Last Admin: 10/04/25 04:37 Dose: 5 mg Documented By: RUBÉN Sodium Chloride (Normal Saline 0.9%) 1,000 mls @ 1,000 mls/hr IV BOLUS ONE Stop: 10/04/25 03:32 Last Infusion: 10/04/25 04:39 Dose: Infused Documented By: Admin: 10/04/25 03:41 Dose: 1,000 mls/hr Documented By: MASON Morphine Sulfate (Morphine 4 Mg/Ml Inj) 4 mg IV NOW ONE Stop: 10/04/25 01:20 Last Admin: 10/04/25 02:14 Dose: 4 mg Documented By: MASON Vital Signs Vital signs: Vital Signs - 8 hr 10/04/25 00:24 10/04/25 01:37 Temperature 98.9 F 98.2 F Pulse Rate 92 H 91 H Respiratory Rate 16 18 Blood Pressure 137/84 170/85 H Pulse Oximetry 99 97 Oxygen Delivery Method Room Air Room Air MDM - Male Genitourinary Lab Data 10/04/25 02:17 10/04/25 02:17 Labs: Lab Results 10/04/25 Range/Units 02:17 WBC 15.2 H (4.5-11.0) X10^3/uL RBC 5.72 (4.5-5.9) X10^6/uL Hgb 16.1 (13.5-17.5) g/dL Hct 48.7 (41-53) % MCV 85.1 (80-100) fL MCH 28.2 (26-34) PG MCHC 33.2 (30-36) % RDW 14.6 (11.6-14.8) % Plt Count 240 (150-400) X10^3/uL Neut % (Auto) 59.9 (50-75) % Lymph % (Auto) 27.0 (25-40) % [place] % (Auto) 8.8 (3-14) % Eos % (Auto) 3.4 (2-4) % Baso % (Auto) 0.9 (0-2) % Neut # (Auto) 9100 H (2579-8533) /uL Lymph # (Auto) 4100 (4141-8226) /uL [place] # (Auto) 1300 H (0-900) /uL Eos # (Auto) 500 H (0-450) /uL Baso # (Auto) 100 (0-100) /uL Sodium 140 (137-145) mmol/L Potassium 4.0 (3.4-5.1) mmol/L Chloride 105 (98-107) mmol/L Carbon Dioxide 26 (22-32) mmol/L BUN 22 H (9-20) mg/dL Creatinine 0.68 (0.66-1.25) mg/dL Estimated GFR > 60 (>60) mL/min BUN/Creatinine Ratio 32.4 H (6-22) Glucose 88 (70-99) mg/dL Calcium 9.4 (8.4-10.2) mg/dL Magnesium 2.0 (1.6-2.3) mg/dL Total Bilirubin 0.5 (0.2-1.3) mg/dL AST 45 (17-59) IU/L ALT 26 (<50) IU/L Alkaline Phosphatase 60 (38-126) U/L Total Protein 7.6 (6.3-8.2) g/dL Albumin 4.6 (3.5-5.0) g/dL Globulin 3.0 (1.7-4.1) g/dL Albumin/Globulin Ratio 1.5 (1.0-2.8) Urine Dip Bedside Urine Glucose Negative Bedside Urine Bilirubin - Negative Bedside Urine Ketone - Negative Urine Specific [place] 1.030 Bedside Urine Occult Blood +/- Bedside Urine pH 6.0 Bedside Urine Protein - Negative Bedside Urine Urobilinogen - Negative Bedside Urine Nitrite - Negative Bedside Urine Leukocytes - Negative Esterase MDM Narrative Medical decision making narrative: 64-year-old male history of diabetes comes into the ED from home for evaluation of nontraumatic pain to his bilateral thigh/groin area, states it was slowly onset a proximally 3 days ago when he lifted something heavy, states that today though he had a sudden onset of worsening pain causing him to unable to ambulate, he is neurovascularly intact otherwise, able move all 4 extremities denies any bowel or urinary incontinence or retention denies any red flags for cauda equina denies any numbness weakness tingling to lower extremities, on exam patient with completely normal testicular exam, he did have some reproducible pain to palpation of the inguinal ligaments, this is most likely secondary to his symptoms. Patient's lab work did show some slight leukocytosis at 15.2 however I believe this is most likely reactive given patient's significant amount of pain, patient without any signs of infection at this time, patient's CT scan shows some mild thickening of the bladder wall however patient without any signs of urinary tract infection on urinalysis, did note some mild nonobstructing bilateral intrarenal stones most likely the cause of his hematuria, patient was able to stand bear weight and pivot after administration medication here, I do believe his symptoms more likely secondary to strain sprain, he will be discharged home with symptomatic relief strict return precautions given he verbalized understanding agrees to being discharged home with outpatient follow up Discharge Plan Departure Patient Disposition: Home Clinical Impression: Groin strain Instructions: DI for Groin Strain Activity Restrictions/Additional Instructions: Please follow up with the primary care doctor as needed Please read the discharge instructions sheet carefully and bring all papers to all doctor follow-up visits, as it may contain information that your doctor may want to see. Disease processes change and evolve, if your symptoms worsen or if you develop any new symptoms that are concerning to you please return for evaluation. Your evaluation today does not show any evidence of any life-threatening/serious illnesses requiring admission to the hospital or surgery. Please follow-up with your doctor for re-evaluation in approximately 1 day. Seek immediate medical attention for any worrisome symptoms. *If you do not have a primary care provider please contact the [facility] Resource line at [phone]. They will ask some questions about your medical history and help get you set up with a doctor in the community. Prescriptions: New oxycodone-acetaminophen [Percocet] 5-325 mg tablet 1 tab PO Q8H PRN (Reason: pain) 3 Days Qty: 9 0RF diazepam [Valium] 5 mg tablet 5 mg PO BID PRN (Reason: muscle spasm) 3 Days Qty: 9 0RF No Action lisinopril [Prinivil] 20 MG tablet 20 mg PO QDAY Qty: 0 OMEGA-3 FATTY ACIDS (FISH OIL) 500 mg PO QDAY Qty: 0 chlorthalidone 25 mg tablet 25 mg PO DAILY fluoxetine 20 mg capsule 60 mg PO QAM losartan 100 mg tablet 100 mg PO DAILY metformin 1,000 mg tablet 1,000 mg PO BID Trulicity 0.75 mg/0.5 mL pen injector 0.75 mg SUBCUT WEEKLY Patient Comments: [NO ORIGINAL SIG] zinc 100 mg Tablet 100 mg PO DAILY potassium chloride 10 mEq capsule, extended release 10 meq PO DAILY Qty: 30 0RF Referrals: Miscellaneous,Doctor, MD [Primary Care Provider, Medical] Stand Alone Forms: Patient Portal/API
[2025-10-04 01:37] VITALS: BP 170/85; PULSE 91; RESP 18; TEMP 36.8; O2SAT 97
[2025-10-04] MEDS: MORPHINE 4 MG/ML INJ IV (02:14)
[2025-10-04 02:27] LABS: Add Manual Diff / Slide Review NO; Hematocrit 48.7 % (41-53); Hemoglobin 16.1 g/dL (13.5-17.5); Lymphocytes Absolute Auto 4100 /uL (1100-4500); Mean Corpuscular HGB Conc 33.2 % (30-36); Mean Corpuscular Hemoglobin 28.2 PG (26-34); Mean Corpuscular Volume 85.1 fL (80-100); Platelet Count 240 X10^3/uL (150-400)
[2025-10-04 02:54] LABS: Alanine Aminotransferase 26 IU/L (<50); Albumin 4.6 g/dL (3.5-5.0); Albumin Globulin Ratio 1.5 (1.0-2.8); Blood Urea Nitrogen 22 mg/dL (9-20); Calcium 9.4 mg/dL (8.4-10.2); Carbon Dioxide 26 mmol/L (22-32); Chloride 105 mmol/L (98-107); Estimated Glomerular Filt Rate > 60 mL/min (>60); Globulin 3.0 g/dL (1.7-4.1); Glucose 88 mg/dL (70-99); HEMOLYSIS 55 (0-50); Potassium 4.0 mmol/L (3.4-5.1); Sodium 140 mmol/L (137-145); Total Protein 7.6 g/dL (6.3-8.2)
[2025-10-04 02:55] LABS: Alkaline Phosphatase 60 U/L (38-126); Magnesium 2.0 mg/dL (1.6-2.3)
[2025-10-04 03:00] VITALS: BP 168/80; PULSE 89; RESP 20; O2SAT 96
[2025-10-04] MEDS: SODIUM CHLORIDE 0.9% 1,000 ML 1000 ML IV (03:41)
--- NOTE | 2025-10-04 04:54 | DI.CT.S_ITS ---
PROCEDURE: CT ABDOMEN PELVIS W CON INDICATIONS: thigh/groin pain TECHNIQUE: After the administration of intravenous contrast, axial sections acquired from the lung bases to the pubic symphysis. Coronal and sagittal reformats were performed. For radiation dose reduction, the following was used: automated exposure control, adjustment of mA and/or kV according to patient size. COMPARISON: [facility], CT, IVP (ABD & PEL WWO CONTRAST), 08/10/2016, 11:17. FINDINGS: Image quality: Diagnostic. Lower Chest: No significant findings. ABDOMEN: Liver: No solid mass. Gallbladder: No radiopaque gallstones or wall thickening. Biliary ducts: No biliary dilation. Pancreas: No ductal dilation. Spleen: Size is within normal limits. Adrenal Glands: Stable nodular thickening of the right adrenal gland. Kidneys and Ureters: No hydronephrosis. No solid mass. No complex renal cystic lesion which requires follow up. Small burden of bilateral nonobstructing nephrolithiasis. Largest stone measures 7 millimeters on the right and 7 millimeters on the left. Stomach and Bowel: Normal colonic caliber, without significant wall thickening. Colonic diverticulosis without evidence of diverticulitis. Normal appendix. Peritoneum: No abnormal intraperitoneal fluid. No free air. Ventral Wall: No significant ventral hernia. Abdominal Nodes: No retroperitoneal or mesenteric adenopathy by size criteria. Vessels: Aorta and inferior vena cava are normal in size. PELVIS: Pelvic Organs: Unremarkable. Bladder: Irregular bladder wall thickening with perivesicular fat stranding. Pelvic Nodes: No enlarged lymph nodes. Miscellaneous: No inguinal hernias are seen. Bones: No aggressive osseous abnormality. IMPRESSION: Suspected cystitis given bladder wall thickening with perivesicular fat stranding. Correlate with urinalysis. Bilateral nonobstructing nephrolithiasis. Dictated by: González Hodge M.D. on 10/04/2025 at 7:41 Approved by: González Hodge M.D. on 10/04/2025 at 7:43
[2025-10-04 06:35] VITALS: BP 165/89; PULSE 83; RESP 18; TEMP 36.9; O2SAT 98
== END 2025-10-04 07:00 | disposition home or self-care (01) ==
PROVIDERS: Emergency Provider Student in an Organized Health Care Education/Training Program
DX: S39.011A Strain of muscle, fascia and tendon of abdomen, initial encounter (principal); X50.0XXA Overexertion from strenuous movement or load, initial encounter
CPT/HCPCS: 36415; 74177; 80053; 81003; 83735; 85025; 96374; 96375; 99284; J2272; J3360; J7030; Q9967